=== PATIENT | male | born 1980 ===

== ENCOUNTER 2024-05-04 13:21 | Emergency (ER) | payer MEDICAID ==
[~2024-05-04] VITALS: Ht 167.6 cm; Wt 72.7 kg
[2024-05-04 13:25] VITALS: BP 120/66; PULSE 82; RESP 16; TEMP 98.4
[2024-05-04] MEDS: KETOROLAC TROMETHAMINE 30 MG/ML VIAL IM ONE (17:32)
== END 2024-05-04 19:09 | disposition home or self-care (01) ==
LOC: EMS 13:21
DX: S83.8X2A Sprain of other specified parts of left knee, initial encounter (principal); X58.XXXA Exposure to other specified factors, initial encounter; Y93.89 Activity, other specified; Y92.89 Other specified places as the place of occurrence of the external cause; Y99.8 Other external cause status
CPT/HCPCS: 99283; 73562; 96372; J1885